=== PATIENT | female | born 2000 | race Caucasian/White ===

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

== ENCOUNTER 2019-04-01 08:30 | Emergency (ER) | payer OTHER, SELFPAY ==
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
--- NOTE | 2019-04-01 09:52 | ER ---
Nurse's Notes [facility] Name: Shila Mccormack Age: 18 yrs Sex: Female : 2000 Arrival Date: 04/01/2019 Time: 08:34 Bed 12 Private MD: Diagnosis: Streptococcal pharyngitis Presentation: 04/01 09:05 Presenting complaint: Patient states: sore throat X 2 days. + fever, vomited once. iw Transition of care: patient was not received from another setting of care. Onset of symptoms was March 30, 2019. Risk Assessment: Do you want to hurt yourself or someone else? Patient reports no desire to harm self or others. Initial Sepsis Screen: Does the patient meet any 2 criteria? No. Patient's initial sepsis screen is negative. Does the patient have a suspected source of infection? No. Patient's initial sepsis screen is negative. Care prior to arrival: None. 09:05 Method Of Arrival: Ambulatory iw 09:05 Acuity: ANGELICA 4 iw Triage Assessment: 09:30 Pain: Complains of pain in throat. iw 10:00 General: Appears in no apparent distress. Behavior is calm, cooperative. 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 - Social history:: Smoking status: Patient/guardian denies using tobacco. - Ebola Screening: : Patient negative for fever greater than or equal to 101.5 degrees Fahrenheit, and additional compatible Ebola Virus Disease symptoms Patient denies exposure to infectious person Patient denies travel to an Ebola-affected area in the 21 days before illness onset No symptoms or risks identified at this time. Screenin:00 Abuse screen: Denies threats or abuse. Denies injuries from another. Nutritional iw screening: No deficits noted. Tuberculosis screening: No symptoms or risk factors identified. Fall Risk None identified. Assessment: 09:30 General: Appears in no apparent distress. Pain: Complains of pain in throat. Neuro: iw Level of Consciousness is awake, alert, obeys commands, Oriented to person, place, time, situation, Moves all extremities. Cardiovascular: Patient's skin is warm and dry. Respiratory: Airway is patent Respiratory effort is even, unlabored, Breath sounds are clear bilaterally. GI: Abdomen is. EENT: Throat is reddened has enlarged tonsils on left with gag reflex present. Derm: Skin is intact, is healthy with good turgor. Musculoskeletal: Range of motion:. Vital Signs: 09:06 BP 117 / 71; Pulse 87; Resp 16; Temp 98.4(O); Pulse Ox 100% on R/A; Pain 8/10; iw ED Course: 08:34 Patient arrived in ED. as 08:56 Khadra Lim RN is Primary Nurse. iw 08:56 Eloy Bartlett PA is PHCP. cp 08:56 Otis Miller MD is Attending Physician. cp 09:06 Triage completed. iw 09:06 Arm band placed on. iw 09:30 Patient has correct armband on for positive identification. iw 10:00 No provider procedures requiring assistance completed. Patient did not have IV access iw during this emergency room visit. Administered Medications: No medications were administered Outcome: :33 Discharge ordered by . cp 10:00 Discharged to home ambulatory. iw 10:00 Condition: good 10:00 Discharge instructions given to patient, Instructed on discharge instructions, follow up and referral plans. medication usage, Demonstrated understanding of instructions, follow-up care, medications, Prescriptions given X 1. 10:01 Patient left the ED. iw Signatures: Sandra Jorgensen as Khadra Lim RN RN iw Eloy Bartlett PA PA cp Corrections: (The following items were deleted from the chart) 13:34 10:30 General: Appears in no apparent distress. iw iw 13:34 10:30 Pain: Complains of pain in throat iw iw :34 10:30 Neuro: Level of Consciousness is awake, alert, obeys commands, Oriented to iw person, place, time, situation, Moves all extremities. iw 13:34 10:30 Respiratory: Airway is patent Respiratory effort is even, unlabored, Breath iw sounds are clear bilaterally. iw 13:34 10:30 Cardiovascular: Patient's skin is warm and dry. iw iw 13:34 10:30 EENT: Throat is reddened has enlarged tonsils on left with gag reflex present, iw iw 13:34 10:30 Derm: Skin is intact, is healthy with good turgor, iw iw 13:34 10:30 Musculoskeletal: Range of motion: iw iw 13:34 10:30 GI: Abdomen is iw iw
--- NOTE | 2019-04-01 09:52 | EDPHYS ---
Physician Documentation [facility] Name: Shila Mccormack Age: 18 yrs Sex: Female : 2000 Arrival Date: 04/01/2019 Time: 08:34 Bed 12 Private MD: ED Physician Otis Miller HPI: 04/01 09:05 This 18 yrs old Female presents to ER via Unassigned with complaints of Sore cp Throat. 09:05 The patient presents with sore throat. cp 09:05 The patient describes throat pain as constant. cp 09:05 Onset: The symptoms/episode began/occurred 2 day(s) ago. Associated signs and symptoms: cp Pertinent positives: fever, vomiting, Pertinent negatives cough, diarrhea. 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 - Social history:: Smoking status: Patient/guardian denies using tobacco. - Ebola Screening: : Patient negative for fever greater than or equal to 101.5 degrees Fahrenheit, and additional compatible Ebola Virus Disease symptoms Patient denies exposure to infectious person Patient denies travel to an Ebola-affected area in the 21 days before illness onset No symptoms or risks identified at this time. ROS: 09:10 Constitutional: Negative for body aches, chills, fever, poor PO intake. cp 09:10 Eyes: Negative for injury, pain, redness, and discharge. cp 09:10 ENT: Positive for sore throat, Negative for drainage from ear(s), ear pain, sinus congestion, sinus pain, difficulty swallowing, difficulty handling secretions. 09:10 Cardiovascular: Negative for chest pain. 09:10 Respiratory: Negative for cough, wheezing. 09:10 Abdomen/GI: Negative for nausea, diarrhea, constipation, active vomiting. 09:10 : Negative for urinary symptoms. 09:10 Skin: Negative for cellulitis, rash. 09:10 Neuro: Negative for altered mental status, headache, weakness. 09:10 All other systems are negative. Exam: 09:15 Constitutional: The patient appears in no acute distress, alert, awake, non-toxic, well cp developed, well nourished. 09:15 Head/Face: Normocephalic, atraumatic. cp 09:15 Eyes: Periorbital structures: appear normal, Conjunctiva: normal, no exudate, no injection, Lids and lashes: appear normal, bilaterally. 09:15 ENT: External ear(s): are unremarkable, Ear canal(s): are normal, clear, TM's: dullness, bilaterally, Nose: is normal, Mouth: Lips: moist, Oral mucosa: moist, Posterior pharynx: Airway: no evidence of obstruction, patent, Tonsils: bilaterally enlarged, with erythema, no exudate, Uvula: midline, non-edematous, erythema, that is moderate, exudate, is not appreciated, Voice: is normal. 09:15 Neck: ROM/movement: is normal, is supple, without pain, no range of motions limitations, no meningismus, no nuchal rigidity. 09:15 Chest/axilla: Inspection: normal, Palpation: is normal, no crepitus, no tenderness. 09:15 Cardiovascular: Rate: normal. 09:15 Respiratory: the patient does not display signs of respiratory distress, Respirations: normal, no use of accessory muscles, no retractions, no splinting, no tachypnea, labored breathing, is not present. 09:15 Abdomen/GI: Exam negative for discomfort, distension, guarding, Inspection: abdomen appears normal. Vital Signs: 09:06 BP 117 / 71; Pulse 87; Resp 16; Temp 98.4(O); Pulse Ox 100% on R/A; Pain 8/10; iw MDM: 08:58 Patient medically screened. cp 09:30 Differential diagnosis: apthous stomatitis, group A strep tonsillitis, mononucleosis, cp peritonsillar abscess pharyngitis, retropharyngeal abcess tonsillitis, uvulitis. 09:32 Data reviewed: vital signs, nurses notes, lab test result(s). cp 09:32 Counseling: I had a detailed discussion with the patient and/or guardian regarding: the cp historical points, exam findings, and any diagnostic results supporting the discharge/admit diagnosis, lab results, to return to the emergency department if symptoms worsen or persist or if there are any questions or concerns that arise at home. 08/16 08:56 Order name: Strep; Complete Time: 09:31 04/01 09:31 Interpretation: Reviewed. cp Administered Medications: No medications were administered Disposition: 11:48 Co-signature as Attending Physician, Otis Miller MD. rn Disposition: 04/01/19 09:33 Discharged to Home. Impression: Streptococcal pharyngitis. - Condition is Stable. - Discharge Instructions: Strep Throat. - Prescriptions for Amoxicillin 875 mg Oral Tablet - take 1 tablet by ORAL route every 12 hours for 10 days; 20 tablet. Ibuprofen 800 mg Oral Tablet - take 1 tablet by ORAL route every 8 hours As needed take with food; 30 tablet. - Medication Reconciliation Form, Thank You Letter, Antibiotic Education, Prescription Opioid Use form. - Follow up: Private Physician; When: 2 - 3 days; Reason: Worsening of condition. - Problem is new. - Symptoms have improved. Signatures: Dispatcher [employer] Khadra Eid RN RN iw Nieto, Roman, MD MD rn Page, Corey, PA PA cp Corrections: (The following items were deleted from the chart) : 08 09:15 Constitutional: The patient appears in no acute distress, alert, awake, cp non-toxic, well developed, well nourished, cp 04/01 09:56 08 09:15 Head/Face: Normocephalic, atraumatic. cp cp 04/01 09:56 0815 09:15 Eyes: Periorbital structures: appear normal, Conjunctiva: normal, no cp exudate, no injection, Lids and lashes: appear normal, bilaterally, cp 04/01 09:56 08 09:15 ENT: External ear(s): are unremarkable, Ear canal(s): are normal, clear, cp TM's: bulging, is not appreciated, bilaterally, dullness, bilaterally, erythema, is not appreciated, bilaterally, Nose: is normal, Mouth: Lips: moist, Oral mucosa: moist, Posterior pharynx: Airway: no evidence of obstruction, patent, Tonsils: bilaterally enlarged, with erythema, no exudate, Uvula: midline, non-edematous, swelling, is not appreciated, erythema, that is moderate, exudate, is not appreciated, cp 04/01 09:56 08/15 09:15 Neck: ROM/movement: is normal, is supple, without pain, no range of motions cp limitations, no meningismus, no nuchal rigidity, cp 04/01 09:56 03/31 09:15 Chest/axilla: Inspection: normal, cp cp 04/01 09:56 08 09:15 Cardiovascular: Rate: normal, cp cp 04/01 09:56 08 09:15 Respiratory: the patient does not display signs of respiratory distress, cp Respirations: normal, no use of accessory muscles, no retractions, no splinting, no tachypnea, cp 04/01 10:01 09:33 04/01/2019 09:33 Discharged to Home. Impression: Streptococcal pharyngitis. iw Condition is Stable. Forms are Medication Reconciliation Form, Thank You Letter, Antibiotic Education, Prescription Opioid Use. Follow up: Private Physician; When: 2 - 3 days; Reason: Worsening of condition. Problem is new. Symptoms have improved. cp
[2019-04-01 10:42] VITALS: BP 117/71; TEMP 98.4; O2SAT 100
== END 2019-04-01 10:01 | disposition home or self-care (01) ==
LOC: ER 08:30
DX: J02.0 Streptococcal pharyngitis (principal)
CPT/HCPCS: 87081; 99282

== ENCOUNTER 2019-09-06 11:19 | Emergency (ER) | payer SELFPAY ==
[2019-09-06] MEDS ORDERED: ACETAMINOPHEN 500 MG TAB ONE (11:32)
--- NOTE | 2019-09-06 12:53 | ER ---
Nurse's Notes [facility] Name: Shila Mccormack Age: 19 yrs Sex: Female : 2000 Arrival Date: 09/06/2019 Time: 11: Bed 12 Private MD: Diagnosis: Acute upper respiratory infection, unspecified Presentation: 09/06 11:26 Presenting complaint: Patient states: cough, vomiting started yesterday and today sv reports fever Tmax 100. Transition of care: patient was not received from another setting of care. Onset of symptoms was September 05, 2019. Care prior to arrival: None. 11:26 Method Of Arrival: Ambulatory sv 11:26 Acuity: ANGELICA 4 sv 12:00 Initial Sepsis Screen: Does the patient meet any 2 criteria? Temp <36.0*C (96.8*F)) or aa5 > 38.3*C (100.9*F). HR > 90 bpm. Does the patient have a suspected source of infection? No. Patient's initial sepsis screen is negative. 12:00 Risk Assessment: Do you want to hurt yourself or someone else? Patient reports no aa5 desire to harm self or others. Historical: - Allergies: 11:27 No Known Allergies; sv - PSHx: 11:27 None; sv - Ebola Screening: : No symptoms or risks identified at this time. Screenin:00 Abuse screen: Denies threats or abuse. Nutritional screening: No deficits noted. aa5 Tuberculosis screening: No symptoms or risk factors identified. Fall Risk None identified. Assessment: 12:00 General: Appears comfortable, Behavior is calm, cooperative. Pain: Complains of pain in aa5 throat and whole body Pain currently is 5 out of 10 on a pain scale. Quality of pain is described as aching. Neuro: Level of Consciousness is awake, alert, obeys commands, Oriented to person, place, time, situation. Cardiovascular: Heart tones S1 S2 present Rhythm is regular. Respiratory: Airway is patent Respiratory effort is even, unlabored, Respiratory pattern is regular, symmetrical, Breath sounds are clear bilaterally. GI: Abdomen is flat, non-distended, Bowel sounds present X 4 quads. Abd is soft and non tender X 4 quads. : No signs and/or symptoms were reported regarding the genitourinary system. EENT: Reports sore throat . Derm: Skin is pink, warm \T\ dry. Musculoskeletal: Range of motion: intact in all extremities. 12:32 Neuro: Level of Consciousness is awake, alert, obeys commands, Oriented to person, aa5 place, time, situation. Respiratory: Airway is patent Respiratory effort is even, unlabored, Respiratory pattern is regular, symmetrical. Derm: Skin is moist, Skin is normal, Skin temperature is warm Fever decreased, pt reports sweating. Vital Signs: 11:27 BP 115 / 72; Pulse 121; Resp 20; Temp 101.9(O); Pulse Ox 100% ; Weight 61.23 kg; Height sv 4 ft. 10 in. (147.32 cm); 12:32 Pulse 102; Resp 18 S; Temp 99.2(O); Pulse Ox 97% on R/A; aa5 11:27 Body Mass Index 28.21 (61.23 kg, 147.32 cm) sv ED Course: 11:21 Patient arrived in ED. as 11:26 Arm band placed on. sv 11:27 Triage completed. sv 11:52 Mila Mishra, RN is Primary Nurse. aa5 11:53 Ese Scott [facility]-C [facility]. kb 11:53 Otis Miller MD is Attending Physician. kb 11:55 Patient has correct armband on for positive identification. Call light in reach. aa5 12:07 Throat Culture Sent. sv 12:55 No provider procedures requiring assistance completed. Patient did not have IV access aa5 during this emergency room visit. Administered Medications: 11:32 Drug: Tylenol 1000 mg Route: PO; sv Outcome: 12:53 Discharge ordered by MD. kb 13:03 Discharged to home ambulatory, with family. aa5 13:03 Condition: improved 13:03 Discharge instructions given to patient, Instructed on discharge instructions, follow up and referral plans. medication usage, Demonstrated understanding of instructions, follow-up care, medications, Prescriptions given X 1. 13:05 Patient left the ED. aa5 Signatures: Ese Scott FNP-C FNP-Ckb Verde, Stephanie, RN RN sv Sandra Jorgensen Audri, RN RN aa5 Corrections: (The following items were deleted from the chart) 11:30 11:27 Resp 20bpm; Temp 101.9F Oral; sv sv
--- NOTE | 2019-09-06 12:53 | EDPHYS ---
Physician Documentation [facility] Name: Shila Mccormack Age: 19 yrs Sex: Female : 2000 Arrival Date: 09/06/2019 Time: 11: Bed 12 Private MD: ED Physician Otis Miller HPI: 09/06 12:50 This 19 yrs old Female presents to ER via Ambulatory with complaints of kb Fever, Cough, Vomiting. 12:51 The patient or guardian reports cough, that is intermittent, described as moderate, flu kb symptoms, low-grade fever, myalgias. Onset: The symptoms/episode began/occurred yesterday. Severity of symptoms: At their worst the symptoms were moderate, in the emergency department the symptoms are unchanged. Modifying factors: The symptoms are alleviated by nothing, the symptoms are aggravated by nothing. Associated signs and symptoms: Pertinent positives: diarrhea, fever, nausea, rhinorrhea, sore throat, vomiting. The patient has not experienced similar symptoms in the past. The patient has not recently seen a physician. Historical: - Allergies: 11:27 No Known Allergies; sv - PSHx: 11:27 None; sv - Ebola Screening: : No symptoms or risks identified at this time. ROS: 12:50 Neck: Negative for injury, pain, and swelling, Cardiovascular: Negative for chest pain, kb palpitations, and edema, Back: Negative for injury and pain, MS/Extremity: Negative for injury and deformity, Skin: Negative for injury, rash, and discoloration, Neuro: Negative for headache, weakness, numbness, tingling, and seizure. 12:50 Constitutional: Positive for body aches, chills, fatigue, fever, malaise. 12:50 ENT: Positive for rhinorrhea, sore throat. 12:50 Respiratory: Positive for cough. 12:50 Abdomen/GI: Positive for nausea, vomiting, and diarrhea. Exam: 12:49 Constitutional: This is a well developed, well nourished patient who is awake, alert, kb and in no acute distress. Head/Face: Normocephalic, atraumatic. ENT: Nares patent. No nasal discharge, no septal abnormalities noted. Tympanic membranes are normal and external auditory canals are clear. Oropharynx with no redness, swelling, or masses, exudates, or evidence of obstruction, uvula midline. Mucous membranes moist. Neck: Trachea midline, no thyromegaly or masses palpated, and no cervical lymphadenopathy. Supple, full range of motion without nuchal rigidity, or vertebral point tenderness. No Meningismus. Chest/axilla: Normal chest wall appearance and motion. Nontender with no deformity. No lesions are appreciated. Cardiovascular: Regular rate and rhythm with a normal S1 and S2. No gallops, murmurs, or rubs. Normal PMI, no JVD. No pulse deficits. Respiratory: Lungs have equal breath sounds bilaterally, clear to auscultation and percussion. No rales, rhonchi or wheezes noted. No increased work of breathing, no retractions or nasal flaring. Abdomen/GI: Soft, non-tender, with normal bowel sounds. No distension or tympany. No guarding or rebound. No evidence of tenderness throughout. Skin: Warm, dry with normal turgor. Normal color with no rashes, no lesions, and no evidence of cellulitis. MS/ Extremity: Pulses equal, no cyanosis. Neurovascular intact. Full, normal range of motion. Neuro: Awake and alert, GCS 15, oriented to person, place, time, and situation. Cranial nerves II-XII grossly intact. Motor strength 5/5 in all extremities. Sensory grossly intact. Cerebellar exam normal. Normal gait. Vital Signs: 11:27 BP 115 / 72; Pulse 121; Resp 20; Temp 101.9(O); Pulse Ox 100% ; Weight 61.23 kg; Height sv 4 ft. 10 in. (147.32 cm); 12:32 Pulse 102; Resp 18 S; Temp 99.2(O); Pulse Ox 97% on R/A; aa5 11:27 Body Mass Index 28.21 (61.23 kg, 147.32 cm) sv MDM: 11:53 Patient medically screened. kb 12:49 Data reviewed: vital signs, nurses notes. Data interpreted: Pulse oximetry: on room air kb is 97 %. Interpretation: normal. Counseling: I had a detailed discussion with the patient and/or guardian regarding: the historical points, exam findings, and any diagnostic results supporting the discharge/admit diagnosis, lab results, the need for outpatient follow up, a family practitioner, to return to the emergency department if symptoms worsen or persist or if there are any questions or concerns that arise at home. 01/21 11:30 Order name: Flu; Complete Time: 12:10 09/06 11:30 Order name: Strep; Complete Time: 11:57 09/06 12:07 Order name: Throat Culture EDIN Administered Medications: 11:32 Drug: Tylenol 1000 mg Route: PO; Disposition: 17:14 Co-signature as Attending Physician, Otis Miller MD. rn Disposition: 09/06/19 12:53 Discharged to Home. Impression: Acute upper respiratory infection, unspecified. - Condition is Stable. - Discharge Instructions: Upper Respiratory Infection, Adult, [id number], Viral Respiratory Infection, [id number]. - Prescriptions for Zofran 4 mg Oral Tablet - take 1 tablet by ORAL route every 6 hours As needed; 20 tablet. - Medication Reconciliation Form, Thank You Letter, Antibiotic Education, Prescription Opioid Use, Work release form form. - Follow up: Emergency Department; When: As needed; Reason: Worsening of condition. Follow up: Private Physician; When: 2 - 3 days; Reason: Recheck today's complaints, Continuance of care, Re-evaluation by your physician. Signatures: Dispatcher [employer] EDIN Ese Scott, ROSELINE-C WIRELINE SUPERVISOR-Niki Sarmiento RN RN sv Nieto, Roman, MD MD rn Calderon, Audri, RN RN aa5 Corrections: (The following items were deleted from the chart) 13:05 12:53 09/06/2019 12:53 Discharged to Home. Impression: Acute upper respiratory aa5 infection, unspecified. Condition is Stable. Forms are Medication Reconciliation Form, Thank You Letter, Antibiotic Education, Prescription Opioid Use. Follow up: Emergency Department; When: As needed; Reason: Worsening of condition. Follow up: Private Physician; When: 2 - 3 days; Reason: Recheck today's complaints, Continuance of care, Re-evaluation by your physician. kb
[2019-09-06 16:33] VITALS: BP 115/72; TEMP 99.2; O2SAT 97
== END 2019-09-06 13:05 | disposition home or self-care (01) ==
LOC: ER 11:19
DX: J06.9 Acute upper respiratory infection, unspecified (principal)
CPT/HCPCS: 87070; 87081; 87804; 99283

== ENCOUNTER 2020-04-08 18:03 | Emergency (ER) | payer SELFPAY ==
--- OUTSIDE RECORDS SUMMARY | 2020-04-08 18:06 | XMS REPORT | Clinical Summary ---
:2000 Author Organization [facility] Address [address] [place] [id number] Care Team Providers Name Role Phone Asked, No Pcp Primary Care Provider Unavailable Allergies No Known Allergies Medications No known medications Active Problems Not on file Social History Tobacco Use Types Packs/Day Years [...] travel history available. 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
--- OUTSIDE RECORDS SUMMARY | 2020-04-08 18:06 | XMS REPORT | Continuity of Care Document ---
:2000 Author Organization [facility] t Address [address] [place] [address] Care Team Providers Name Role Phone Asked, Pcp Primary Care Physician Unavailable Problems This patient has no known problems. Allergies, Adverse Reactions, Alerts This patient has no known allergies or adverse reactions. Social History Social Habit Start Date Stop Date Quantity Comments Source Sex Assigned At [place] M ethodist Alcohol intake 2018-05-15 2018-05-15 Current [facility] thodist 00:00:00 00:00:00 non-drinker of alcohol (finding) Smoking Status Start Date Stop Date Source Current every day smoker 2018-05-15 00:00:00 Graciela Roberts Medications This patient has no known medications. Procedures This patient has no known procedures. Plan of Care Planned Activity Planned Date Details Comments Source Future Scheduled 2020-05-17 INFLUENZA VACCINE [place] [facility] 00:00:00 [code = INFLUENZA VACCINE] Future Scheduled 2019 Screening for [facility]ist Test 00:00:00 malignant neoplasm of cervix (procedure) [code = 336417495] Future Scheduled 2014 CHLAMYDIA SCREENING [place] [facility] 00:00:00 [code = CHLAMYDIA SCREENING] Results This patient has no known results.
[2020-04-08 18:58] LABS: Urine Blood 3+ (NEG); Urine Glucose NEGATIVE (NEG); Urine Protein 3+ (NEG); Urine Specific Gravity >1.030 (1.005-1.030)
[2020-04-08 19:33] LABS: Urine Bacteria 20-50 /HPF (<20); Urine RBC >50 /HPF (NONE SEEN)
[2020-04-08 19:34] LABS: Urine Culture Reflex Order REFLEXED
--- NOTE | 2020-04-08 19:43 | EDPHYS ---
Physician Documentation [facility] Name: Shila Mccormack Age: 19 yrs Sex: Female : 2000 Arrival Date: 04/08/2020 Time: 18:05 Bed 19 Private MD: ED Physician Eloy Munoz HPI: 04/08 18:55 This 19 yrs old Female presents to ER via Ambulatory with complaints of jmm Urinary Frequency, Pelvic Pain. 18:55 The patient presents with urinary symptoms, dysuria, hematuria. Onset: The jmm symptoms/episode began/occurred today. Modifying factors: The symptoms are alleviated by nothing, the symptoms are aggravated by nothing. Associated signs and symptoms: Pertinent negatives: diarrhea, nausea, vomiting. 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 - Social history:: Smoking status: Patient denies any tobacco usage or history of. ROS: 18:55 Constitutional: Negative for fever, chills, and weight loss, Cardiovascular: Negative jmm for chest pain, palpitations, and edema, Respiratory: Negative for shortness of breath, cough, wheezing, and pleuritic chest pain. 18:55 Constitutional: Positive for 18:55 : Positive for urinary symptoms. 18:55 All other systems are negative. Exam: 18:55 Constitutional: This is a well developed, well nourished patient who is awake, alert, jmm and in no acute distress. Head/Face: atraumatic. Eyes: EOMI, no conjunctival erythema appreciated ENT: Moist Mucus Membranes Neck: Trachea midline, Supple Chest/axilla: Normal chest wall appearance and motion. Cardiovascular: Regular rate and rhythm. No edema appreciated Respiratory: Normal respirations, no respiratory distress appreciated Abdomen/GI: Non distended, soft Back: Normal ROM Skin: General appearance color normal MS/ Extremity: Moves all extremities, no obvious deformities appreciated, no edema noted to the lower extremities Neuro: Awake and alert, normal gait Psych: Behavior is normal, Mood is normal, Patient is cooperative and pleasant Vital Signs: 18:18 BP 121 / 76; Pulse 81; Resp 17 S; Temp 98.6(O); Pulse Ox 100% on R/A; Pain 8/10; jl7 19:50 BP 101 / 59; Pulse 79; Resp 17; Pulse Ox 99% ; Pain 0/10; mt2 19:50 Roel (FACES) mt2 MDM: 18:26 Patient medically screened. [facility] 19:36 Data reviewed: vital signs, nurses notes. Counseling: I had a detailed discussion with carey the patient and/or guardian regarding: the historical points, exam findings, and any diagnostic results supporting the discharge/admit diagnosis, lab results, the need for outpatient follow up, to return to the emergency department if symptoms worsen or persist or if there are any questions or concerns that arise at home. ED course: Patient is alert and non toxic in appearance in the ED. History, labs appears consistent with hemorrhagic cystitis. Patient is advised to return to the ED if symptoms worsen. . 04/08 18:45 Order name: Urine Microscopic Only; Complete Time: 19:35 ca1 04/08 18:46 Order name: Urine Dipstick--Ancillary (enter results); Complete Time: 19:22 mt 04/08 18:40 Order name: Urine Dipstick-Ancillary (obtain specimen); Complete Time: 18:40 [facility] 04/08 18:40 Order name: Urine Test (obtain specimen); Complete Time: 18:40 [facility] 04/08 18:46 Order name: Urine --Ancillary (enter results); Complete Time: 19:22 mt 04/08 19:36 Order name: Urine Culture EDMS Administered Medications: No medications were administered Disposition: 04/09 12:01 Co-signature as Attending Physician, Eloy Munoz MD I agree with the assessment and [facility] plan of care. Disposition: 04/08/20 19:42 Discharged to Home. Impression: Cystitis, unspecified with hematuria. - Condition is Stable. - Discharge Instructions: Urinary Tract Infection, Adult. - Prescriptions for Cephalexin 500 mg Oral Capsule - take 1 capsule by ORAL route every 12 hours for 10 days; 20 capsule. - Medication Reconciliation Form, Thank You Letter, Antibiotic Education, Prescription Opioid Use form. - Follow up: Private Physician; When: 2 - 3 days; Reason: Recheck today's complaints, Continuance of care, Re-evaluation by your physician. Signatures: Dispatcher [employer] EDEloy Rios MD MD cha Mickail, Joel, PA PA jmm Leal, Jahala RN RN jl7 Jesi Reed RN RN ca1 Maria T Whiting RN RN mt2 Corrections: (The following items were deleted from the chart) 04/08 19:51 19:42 04/08/2020 19:42 Discharged to Home. Impression: Cystitis, unspecified with mt2 hematuria. Condition is Stable. Forms are Medication Reconciliation Form, Thank You Letter, Antibiotic Education, Prescription Opioid Use. Follow up: Private Physician; When: 2 - 3 days; Reason: Recheck today's complaints, Continuance of care, Re-evaluation by your physician. carey
--- NOTE | 2020-04-08 19:43 | ER ---
Nurse's Notes [facility] Name: Shila Mccormack Age: 19 yrs Sex: Female : 2000 Arrival Date: 04/08/2020 Time: 18:05 Bed 19 Private MD: Diagnosis: Cystitis, unspecified with hematuria Presentation: 04/08 18:18 Chief complaint: Patient states: Painful urination with lower abdominal pain since this jl7 morning, denies burning with urination. Coronavirus screen: Client denies travel out of the [place] in the last 14 days. At this time, the client does not indicate any symptoms associated with coronavirus-19. Ebola Screen: No symptoms or risks identified at this time. Initial Sepsis Screen: Does the patient meet any 2 criteria? No. Patient's initial sepsis screen is negative. Does the patient have a suspected source of infection? No. Patient's initial sepsis screen is negative. Risk Assessment: Do you want to hurt yourself or someone else? Patient reports no desire to harm self or others. Onset of symptoms was April 08, 2020. Care prior to arrival: None. Transition of care: patient was not received from another setting of care. 18:18 Method Of Arrival: Ambulatory jl7 18:18 Acuity: ANGELICA 4 jl7 Triage Assessment: 18:20 General: Appears in no apparent distress. uncomfortable, Behavior is calm, cooperative, jl7 appropriate for age. Pain: Complains of pain in right lower quadrant and left lower quadrant Pain currently is 8 out of 10 on a pain scale. 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 - Social history:: Smoking status: Patient denies any tobacco usage or history of. Screenin:23 Abuse screen: Denies threats or abuse. Denies injuries from another. Nutritional ca1 screening: No deficits noted. Tuberculosis screening: No symptoms or risk factors identified. Fall Risk None identified. Assessment: 18:30 General: Appears in no apparent distress. comfortable, Behavior is calm, cooperative, ca1 appropriate for age. Pain: Complains of pain in suprapubic area, right lower quadrant and left lower quadrant Pain at worst was 8 out of 10 on a pain scale. Pain began this morning Aggravated by urination. Neuro: Level of Consciousness is awake, alert, obeys commands, Oriented to person, place, time, situation. : Urine is cloudy, Reports burning with urination, urgency, urinary frequency. Derm: Skin is intact, is healthy with good turgor, Skin is pink, warm \T\ dry. Musculoskeletal: Circulation, motion, and sensation intact. Capillary refill < 3 seconds. 19:49 Reassessment: Patient is alert, oriented x 3, equal unlabored respirations, skin mt2 warm/dry/pink. Patient is alert/active/playful, equal unlabored respirations, skin warm/dry/pink. Patient denies pain at this time. General: Appears in no apparent distress. comfortable, Behavior is calm, cooperative. Pain: Denies pain. Vital Signs: 18:18 BP 121 / 76; Pulse 81; Resp 17 S; Temp 98.6(O); Pulse Ox 100% on R/A; Pain 8/10; jl7 19:50 BP 101 / 59; Pulse 79; Resp 17; Pulse Ox 99% ; Pain 0/10; mt2 19:50 Roel (FACES) mt2 ED Course: 18:05 Patient arrived in ED. ag5 18:20 Triage completed. jl7 18:20 Arm band placed on right wrist. 7 18:21 [facility] Latham [facility] 18:21 Otis Miller MD is Attending Physician. [facility] 18:23 Jesi Reed, NERY is Primary Nurse. ca1 18:23 Patient has correct armband on for positive identification. Bed in low position. Call ca1 light in reach. Side rails up X 1. Pulse ox on. NIBP on. Warm blanket given. 18:25 Attending Physician role handed off by Otis Miller MD martha 18:25 Eloy Munoz MD is Attending Physician. [facility] 19:50 No provider procedures requiring assistance completed. Patient did not have IV access mt2 during this emergency room visit. Administered Medications: No medications were administered Outcome: 19:42 Discharge ordered by . [facility] 19:50 Discharged to home ambulatory. mt2 19:50 Condition: good 19:50 Discharge instructions given to patient, Instructed on discharge instructions, follow up and referral plans. medication usage, Demonstrated understanding of instructions, follow-up care, medications, Prescriptions given X 1. 19:51 Patient left the ED. mt2 Signatures: Eloy Munoz MD MD cha Mickail, Joel, PA PA jmm Leal, Jahala, RN RN jl7 Jesi Reed RN RN ca1 [place], Ajare [facility] Maria T Whiting RN RN mt2
== END 2020-04-08 19:51 | disposition home or self-care (01) ==
LOC: ER 18:03
DX: N30.91 Cystitis, unspecified with hematuria (principal)
CPT/HCPCS: 81003; 81015; 81025; 87077; 87086; 87088; 87186; 99283

== ENCOUNTER 2020-04-14 15:58 | Emergency (ER) | payer SELFPAY ==
--- OUTSIDE RECORDS SUMMARY | 2020-04-14 16:00 | XMS REPORT | Clinical Summary ---
:2000 Author Organization [facility] Address [address] [place] [id number] Care Team Providers Name Role Phone Asked, [...] INFLUENZA VACCINE 05/17/2020 Results Not on fileafter 04/14/2019 Advance Directives For more information, please contact: [phone] Type Date Recorded Patient [place] Explanati on Advance Directives, Living Will and Medical Power of Orientation & Mobility Specialist Advance Directives, Living Will 05/15/2018 2:50 PM and Medical Power of Orientation & Mobility Specialist
--- OUTSIDE RECORDS SUMMARY | 2020-04-14 16:00 | XMS REPORT | Continuity of Care Document ---
:2000 Author Organization [facility] t Address [address] [place] [address] Care Team Providers Name Role Phone Asked, Pcp Primary Care Physician Unavailable Problems This patient has no known problems. Allergies, Adverse Reactions, Alerts This patient has no known allergies or adverse reactions. Social History Social Habit Start Date Stop Date Quantity Comments Source Sex Assigned At [place] M ethodist Alcohol intake 2018-05-15 2018-05-15 Current [facility] thodist 00:00:00 00:00:00 non-drinker of alcohol (finding) Smoking Status Start Date Stop Date Source Current every day smoker 2018-05-15 00:00:00 Graciela Roberts Medications This patient has no known medications. Procedures This patient has no known procedures. Plan of Care Planned Activity Planned Date Details Comments Source Future Scheduled 2020-05-17 INFLUENZA VACCINE [place] [facility] 00:00:00 [code = INFLUENZA VACCINE] Future Scheduled 2019 Screening for [facility]ist Test 00:00:00 malignant neoplasm of cervix (procedure) [code = 290121661] Future Scheduled 2014 CHLAMYDIA SCREENING [place] [facility] 00:00:00 [code = CHLAMYDIA SCREENING] Results This patient has no known results.
[2020-04-14 18:30] LABS: Urine Blood NEGATIVE (NEG); Urine Glucose NEGATIVE (NEG); Urine Protein NEGATIVE (NEG); Urine Specific Gravity 1.025 (1.005-1.030)
[2020-04-14 18:39] LABS: Urine Bacteria <20 /HPF (<20); Urine Culture Reflex Order NOT NEEDED; Urine RBC <5 /HPF (NONE SEEN)
--- NOTE | 2020-04-14 18:44 | EDPHYS ---
Physician Documentation [facility] Name: Shila Mccormack Age: 19 yrs Sex: Female : 2000 Arrival Date: 04/14/2020 Time: 16:01 Bed 23 Private MD: ED Physician Romario Michaels HPI: 04/14 18:32 This 19 yrs old Female presents to ER via Ambulatory with complaints of Back kb Pain. 18:30 Pt reports she was diagnosed with a UTI on 8210/06, got a call to change her antibiotics kb to Cipro after the urine culture came back. REports UTI symptoms have resolved, but she has had intermittent left flank pain since starting Cipro. 18:32 The patient complains of pain in the left flank. The pain does not radiate. Onset: The kb symptoms/episode began/occurred 2 day(s) ago, and became worse today. Modifying factors: The symptoms are alleviated by nothing. the symptoms are aggravated by nothing. Associated signs and symptoms: The patient has no apparent associated signs or symptoms. Severity of pain: At its worst the pain was moderate in the emergency department the pain is unchanged. The patient has not experienced similar symptoms in the past. The patient has not recently seen a physician. Historical: - Allergies: 16:32 No Known Allergies; ss - Immunization history:: Adult Immunizations up to date. - Social history:: Smoking status: Patient denies any tobacco usage or history of. ROS: 18:30 Constitutional: Negative for fever, chills, and weight loss, Cardiovascular: Negative kb for chest pain, palpitations, and edema, Respiratory: Negative for shortness of breath, cough, wheezing, and pleuritic chest pain, Abdomen/GI: Negative for abdominal pain, nausea, vomiting, diarrhea, and constipation, MS/Extremity: Negative for injury and deformity, Skin: Negative for injury, rash, and discoloration, Neuro: Negative for headache, weakness, numbness, tingling, and seizure. 18:30 Back: Positive for flank pain, on the left. Exam: 18:30 Constitutional: This is a well developed, well nourished patient who is awake, alert, kb and in no acute distress. Head/Face: Normocephalic, atraumatic. Neck: Trachea midline, no thyromegaly or masses palpated, and no cervical lymphadenopathy. Supple, full range of motion without nuchal rigidity, or vertebral point tenderness. No Meningismus. Chest/axilla: Normal chest wall appearance and motion. Nontender with no deformity. No lesions are appreciated. Cardiovascular: Regular rate and rhythm with a normal S1 and S2. No gallops, murmurs, or rubs. Normal PMI, no JVD. No pulse deficits. Respiratory: Lungs have equal breath sounds bilaterally, clear to auscultation and percussion. No rales, rhonchi or wheezes noted. No increased work of breathing, no retractions or nasal flaring. Abdomen/GI: Soft, non-tender, with normal bowel sounds. No distension or tympany. No guarding or rebound. No evidence of tenderness throughout. Skin: Warm, dry with normal turgor. Normal color with no rashes, no lesions, and no evidence of cellulitis. MS/ Extremity: Pulses equal, no cyanosis. Neurovascular intact. Full, normal range of motion. Neuro: Awake and alert, GCS 15, oriented to person, place, time, and situation. Cranial nerves II-XII grossly intact. Motor strength 5/5 in all extremities. Sensory grossly intact. Cerebellar exam normal. Normal gait. 18:30 Back: CVA tenderness, that is mild, is noted on the left. Vital Signs: 16:30 BP 130 / 74; Pulse 73; Resp 16; Temp 98.4(TE); Pulse Ox 99% on R/A; Weight 61.23 kg; ss Height 4 ft. 10 in. (147.32 cm); Pain 6/10; 16:30 Body Mass Index 28.21 (61.23 kg, 147.32 cm) ss MDM: 17:49 Patient medically screened. kb 18:29 Data reviewed: vital signs, nurses notes. Data interpreted: Pulse oximetry: on room air kb is 99 %. Interpretation: normal. 18:42 Counseling: I had a detailed discussion with the patient and/or guardian regarding: the kb historical points, exam findings, and any diagnostic results supporting the discharge/admit diagnosis, lab results, the need for outpatient follow up, a family practitioner, to return to the emergency department if symptoms worsen or persist or if there are any questions or concerns that arise at home. 18:42 ED course: Urine micro negative for infection. Pt educated to stop Cipro.. kb 04/14 16:33 Order name: Urine Microscopic Only; Complete Time: 18:42 kb 04/14 18:24 Order name: Urine Dipstick--Ancillary (enter results); Complete Time: 18:36 eb 04/14 16:33 Order name: Urine Dipstick-Ancillary (obtain specimen); Complete Time: 18:44 kb 04/14 16:33 Order name: Urine Test (obtain specimen); Complete Time: 18:43 kb 04/14 18:24 Order name: Urine --Ancillary (enter results); Complete Time: 18:36 eb Administered Medications: No medications were administered Disposition: 04/14/20 18:43 Discharged to Home. Impression: Flank Pain. - Condition is Stable. - Discharge Instructions: Flank Pain, [id number]. - Work release form, Medication Reconciliation Form, Thank You Letter, Antibiotic Education, Prescription Opioid Use form. - Follow up: Emergency Department; When: As needed; Reason: Worsening of condition. Follow up: Private Physician; When: 2 - 3 days; Reason: Recheck today's complaints, Continuance of care, Re-evaluation by your physician. Signatures: Dispatcher [employer] EDEse Denson, JAVA SOFTWARE ARCHITECT-C JAVA SOFTWARE ARCHITECT-Jessica Joshi RN RN ss Corrections: (The following items were deleted from the chart) 18:51 18:43 04/14/2020 18:43 Discharged to Home. Impression: Flank Pain. Condition is Stable. ss Forms are Medication Reconciliation Form, Thank You Letter, Antibiotic Education, Prescription Opioid Use. Follow up: Emergency Department; When: As needed; Reason: Worsening of condition. Follow up: Private Physician; When: 2 - 3 days; Reason: Recheck today's complaints, Continuance of care, Re-evaluation by your physician. kb
--- NOTE | 2020-04-14 18:44 | ER ---
Nurse's Notes [facility] Name: Shila Mccormack Age: 19 yrs Sex: Female : 2000 Arrival Date: 04/14/2020 Time: 16:01 Bed 23 Private MD: Diagnosis: Flank Pain Presentation: 04/14 16:30 Chief complaint: Patient states: back achiness x 3-4 days. Diagnosed with UTI on March and told to switch antibiotics to Cipro. Pt reports she is still taking her antibiotics. Coronavirus screen: Client denies travel out of the [place] in the last 14 days. Ebola Screen: Patient denies exposure to infectious person. Patient denies travel to an Ebola-affected area in the 21 days before illness onset. Initial Sepsis Screen: Does the patient meet any 2 criteria? No. Patient's initial sepsis screen is negative. Does the patient have a suspected source of infection? No. Patient's initial sepsis screen is negative. Risk Assessment: Do you want to hurt yourself or someone else? Patient reports no desire to harm self or others. Onset of symptoms was April 07, 2020. 16:30 Method Of Arrival: Ambulatory ss 16:30 Acuity: ANGELICA 4 ss Historical: - Allergies: 16:32 No Known Allergies; ss - Immunization history:: Adult Immunizations up to date. - Social history:: Smoking status: Patient denies any tobacco usage or history of. Screenin:30 Fall Risk None identified. ss 18:51 Abuse screen: Denies threats or abuse. Denies injuries from another. Nutritional ss screening: No deficits noted. Tuberculosis screening: Never had TB. Assessment: 16:30 General: Appears in no apparent distress. comfortable, Behavior is calm, cooperative, ss Denies fever, feeling ill, fatigue, chills. Pain: Complains of pain in mid back area and left mid back Pain currently is 6 out of 10 on a pain scale. Quality of pain is described as aching, Pain began 2-3 days ago. Is continuous. Neuro: Level of Consciousness is awake, alert, obeys commands, Oriented to person, place, time, situation. Cardiovascular: Capillary refill < 3 seconds is brisk in bilateral fingers. : Denies burning with urination, urinary frequency. Derm: Skin is intact, is healthy with good turgor, Skin is dry, Skin is pink, warm \T\ dry. normal. Musculoskeletal: Circulation, motion, and sensation intact. Range of motion: intact in all extremities. Vital Signs: 16:30 BP 130 / 74; Pulse 73; Resp 16; Temp 98.4(TE); Pulse Ox 99% on R/A; Weight 61.23 kg; ss Height 4 ft. 10 in. (147.32 cm); Pain 6/10; 16:30 Body Mass Index 28.21 (61.23 kg, 147.32 cm) ss ED Course: 16:01 Patient arrived in ED. mr 16:30 Patient has correct armband on for positive identification. ss 16:32 Triage completed. ss 16:32 [facility]C [facility]. kb 16:32 Romario Michaels MD is Attending Physician. kb 16:32 Arm band placed on right wrist. ss 17:50 Jessica Boo, RN is Primary Nurse. ss 18:51 No provider procedures requiring assistance completed. Patient did not have IV access ss during this emergency room visit. Administered Medications: No medications were administered Outcome: 18:43 Discharge ordered by MD. kb 18:51 Discharged to home ambulatory. ss 18:51 Condition: good 18:51 Discharge instructions given to patient, Instructed on discharge instructions, follow up and referral plans. medication usage, Demonstrated understanding of instructions, follow-up care, medications, Prescriptions given X 1. 18:51 Patient left the ED. ss Signatures: Ese Scott FNP-C FNP-Enrique Carmen Knapp mr Jessica Boo, RN RN ss
== END 2020-04-14 18:51 | disposition home or self-care (01) ==
LOC: ER 15:58
DX: R10.9 Unspecified abdominal pain (principal)
CPT/HCPCS: 81003; 81015; 81025; 99282